=== PATIENT | female | born 2000 | race Hispanic/Latino ===

== ENCOUNTER 2022-02-11 12:54 | Inpatient (IN) | payer MEDICAID, SELFPAY ==
[~2022-02-11] VITALS: Ht 160 cm; Wt 65.9 kg
[2022-02-11] MEDS ORDERED: ABIL20TA5 PO (16:28)
[2022-02-11] MEDS ORDERED: BUPR-71 PO (16:30)
[2022-02-11] MEDS ORDERED: PATIENT COMMENT (16:31)
[2022-02-11] MEDS ORDERED: HOME MED LIST COMPLETE! XX SCH (16:35)
[2022-02-11] MEDS: buPROPion **SR TABLET** (ZYBAN) 150MG PO SCH (21:17)
[2022-02-12] MEDS: buPROPion **SR TABLET** (ZYBAN) 150MG PO SCH ×2 (09:22→21:45)
[2022-02-12] MEDS: ARIPiprazole 10 MG TAB PO SCH (09:24)
[2022-02-13] MEDS: ARIPiprazole 10 MG TAB PO SCH (09:15)
[2022-02-13] MEDS: buPROPion **SR TABLET** (ZYBAN) 150MG PO SCH ×2 (09:16→21:42)
[2022-02-13] MEDS ORDERED: MAALOX 30 ML SUSP *UDC PO PRN (17:20)
[2022-02-13] MEDS ORDERED: MOM 30ML SUSPENSION UDC PO PRN (17:20)
[2022-02-13] MEDS ORDERED: IBUPROFEN 400MG TAB PO PRN (17:20)
[2022-02-13 21:35] VITALS: BP 107/62
[2022-02-14] MEDS ORDERED: LORazepam 0.5 MG TAB PO ONE
[2022-02-14] MEDS ORDERED: guaiFENesin SYRUP 200MG 10ML UDC PO PRN (00:35)
[2022-02-14 06:38] VITALS: BP 121/73
[2022-02-14] MEDS: ARIPiprazole 10 MG TAB PO SCH (08:25)
[2022-02-14] MEDS: buPROPion **SR TABLET** (ZYBAN) 150MG PO SCH (08:25)
[2022-02-14 14:08] LABS: HCG, SERUM QUALITATIVE NEGATIVE (NEGATIVE)
[2022-02-14 18:16] VITALS: BP 110/63
[2022-02-14] MEDS: LORazepam 0.5 MG TAB PO PRN (21:50)
[2022-02-15 06:38] VITALS: BP 142/82
[2022-02-15 07:10] LABS: CHOLESTEROL RISK RATIO 2.013 (<5)
[2022-02-15] MEDS: buPROPion **XL** TABLET 150MG (WELLBUTRIN XL) PO SCH (08:22)
[2022-02-15] MEDS: ARIPiprazole 10 MG TAB PO SCH (08:22)
[2022-02-15] MEDS: LORazepam 0.5 MG TAB PO PRN ×2 (08:25→21:29)
[2022-02-15] MEDS: PROPRANOLOL 10 MG TAB PO SCH ×3 (12:42→23:09)
[2022-02-15 18:11] VITALS: BP 115/69
[2022-02-16] MEDS: PROPRANOLOL 10 MG TAB PO SCH ×4 (06:24→22:58)
[2022-02-16 06:30] VITALS: BP 111/67
[2022-02-16] MEDS: ARIPiprazole 10 MG TAB PO SCH (08:42)
[2022-02-16] MEDS: buPROPion **XL** TABLET 150MG (WELLBUTRIN XL) PO SCH (08:42)
[2022-02-16] MEDS: LORazepam 0.5 MG TAB PO PRN ×2 (08:43→22:53)
[2022-02-16] MEDS ORDERED: ARIPiprazole 10 MG TAB PO SCH (09:00)
[2022-02-16] MEDS ORDERED: PILL CUTTER 1 EACH XX PRN (09:35)
[2022-02-16 17:55] VITALS: BP 116/69
[2022-02-16] MEDS ORDERED: QUEtiapine FUMARATE 25 MG TAB PO SCH (21:00)
[2022-02-17 06:09] VITALS: BP 131/73
[2022-02-17] MEDS: PROPRANOLOL 10 MG TAB PO SCH (06:09)
[2022-02-17 06:30] VITALS: BP 131/73
[2022-02-17] MEDS: buPROPion **XL** TABLET 150MG (WELLBUTRIN XL) PO SCH (09:47)
[2022-02-17] MEDS: LORazepam 0.5 MG TAB PO PRN (09:49)
[2022-02-17 18:01] VITALS: BP 121/74
[2022-02-17] MEDS ORDERED: ARIPiprazole 10 MG TAB PO SCH (19:00)
[2022-02-17] MEDS: ARIPiprazole 10 MG TAB PO SCH (20:03)
[2022-02-17] MEDS: MIRTAZAPINE 7.5MG PER 1/2 TABLET PO SCH (20:03)
[2022-02-18 06:39] VITALS: BP 107/62
[2022-02-18] MEDS: buPROPion **XL** TABLET 150MG (WELLBUTRIN XL) PO SCH (09:05)
[2022-02-18] MEDS: LORazepam 0.5 MG TAB PO PRN (09:07)
[2022-02-18 18:06] VITALS: BP 119/62
[2022-02-18] MEDS: MIRTAZAPINE 7.5MG PER 1/2 TABLET PO SCH (20:14)
[2022-02-18] MEDS: ARIPiprazole 10 MG TAB PO SCH (20:14)
[2022-02-19 06:57] VITALS: BP 117/62
[2022-02-19] MEDS: buPROPion **XL** TABLET 150MG (WELLBUTRIN XL) PO SCH (10:27)
[2022-02-19] MEDS: LORazepam 0.5 MG TAB PO PRN (10:27)
[2022-02-19 18:00] VITALS: BP 105/65
[2022-02-19] MEDS: MIRTAZAPINE 7.5MG PER 1/2 TABLET PO SCH (21:08)
[2022-02-19] MEDS: ARIPiprazole 10 MG TAB PO SCH (21:08)
[2022-02-20 06:52] VITALS: BP 111/60
[2022-02-20] MEDS: buPROPion **XL** TABLET 150MG (WELLBUTRIN XL) PO SCH (07:57)
[2022-02-20 16:14] VITALS: BP 112/56
[2022-02-20] MEDS: ARIPiprazole 10 MG TAB PO SCH (20:23)
[2022-02-20] MEDS: MIRTAZAPINE 7.5MG PER 1/2 TABLET PO SCH (20:24)
[2022-02-21 06:21] VITALS: BP 114/55
[2022-02-21] MEDS: buPROPion **XL** TABLET 150MG (WELLBUTRIN XL) PO SCH (08:14)
[2022-02-21] MEDS ORDERED: BUPR-71 PO (09:09)
[2022-02-21] MEDS ORDERED: ABIL20TA5 PO (09:09)
[2022-02-21] MEDS ORDERED: ABIL1TAB11 PO (09:09)
[2022-02-21] MEDS ORDERED: MIRT-10 PO (09:09)
[2022-02-21] MEDS ORDERED: BUPR150T12 PO (10:24)
== END 2022-02-21 14:09 | disposition home or self-care (01) | DRG 751 ==
LOC: M ED 12:54 → M ED INP 02-13 17:17 → M PSY 02-13 21:54
PROVIDERS: ADMIT Student in an Organized Health Care Education/Training Program; ATTEND Student in an Organized Health Care Education/Training Program
DX: F33.2 Major depressive disorder, recurrent severe without psychotic features (principal); F43.9 Reaction to severe stress, unspecified; F60.89 Other specific personality disorders; Z62.810 Personal history of physical and sexual abuse in childhood; Z62.811 Personal history of psychological abuse in childhood; Z91.51 Personal history of suicidal behavior; Z79.899 Other long term (current) drug therapy; Z91.010 Allergy to peanuts; Z65.3 Problems related to other legal circumstances